=== PATIENT | female | born 1950 | race Asian ===

== ENCOUNTER → 2016-04-07 | Outpatient (CLI) | payer OTHER | LOC: BMCIMAGING 11:16 | PROVIDERS: ATTEND Internal Medicine | DX: Z13.820 Encounter for screening for osteoporosis (principal); M85.80 Other specified disorders of bone density and structure, unspecified site ==

== ENCOUNTER → 2017-01-13 | Outpatient (CLI) | payer OTHER | LOC: BMCIMAGING 13:40 | PROVIDERS: ATTEND Internal Medicine | DX: Z12.31 Encounter for screening mammogram for malignant neoplasm of breast (principal); Z80.3 Family history of malignant neoplasm of breast | CPT/HCPCS: G0202 ==

== ENCOUNTER → 2018-01-26 | Outpatient (CLI) | payer OTHER | LOC: BMCIMAGING 13:57 | PROVIDERS: ATTEND Internal Medicine | DX: Z12.31 Encounter for screening mammogram for malignant neoplasm of breast (principal); Z80.3 Family history of malignant neoplasm of breast ==

== ENCOUNTER 2018-06-17 19:02 | Observation (INO) | payer OTHER ==
[2018-06-17] MEDS ORDERED: ASPIRIN 81 MG CHEWABLE TAB ONE (19:13)
[2018-06-17] MEDS ORDERED: ASPIRIN 81 MG CHEWABLE TAB PO ONE (19:16)
[2018-06-17 19:36] LABS: PLATELET COUNT 263 10^3/uL (150-400)
--- NOTE | 2018-06-17 19:53 | EDPHY ---
H & P Stated Complaint: chest pressure Time Seen by Provider: 06/17/18 19:15 HPI/ROS: CHIEF COMPLAINT: Chest pressure HISTORY OF PRESENT ILLNESS: 68-year-old female presents with chest pressure. She was exercising on the treadmill this morning when she developed substernal chest pressure. The pressure was moderate and associated with shortness of breath. She stopped exercising and the discomfort resolved. 3 similar episodes today each lasting approximately 1 hr and occurring at rest. Previous nuclear stress test unremarkable, according to the patient. No known history of cardiopulmonary disease. REVIEW OF SYSTEMS: complete 10 point ROS reviewed and is negative except for the noted elements in the HPI Source: Patient - Personal History Current Tetanus/Diphtheria Vaccine: Yes Current Tetanus Diphtheria and Acellular Pertussis (TDAP): Yes - Medical/Surgical History Hx Asthma: No Hx Chronic Respiratory Disease: No Hx Diabetes: No Hx Cardiac Disease: No Hx Renal Disease: No Hx Cirrhosis: No Hx Alcoholism: No Hx HIV/AIDS: No Hx Splenectomy or Spleen Trauma: No Other PMH: HTN - Social History Smoking Status: Never smoked Alcohol Use: Sober Drug Use: None - Physical Exam Exam: General Appearance: Alert, pleasant Eyes: Pupils equal and round, no conjunctival pallor or injection ENT, Mouth: Mucous membranes moist Neck: Normal inspection Respiratory: Lungs are clear to auscultation Cardiovascular: Regular rate and rhythm, 2/6 systolic murmur Gastrointestinal: Abdomen is soft and nontender Neurological: A&O, nonfocal, normal gait Skin: Warm and dry, no rash Extremities: Nontender, no pedal edema Psychiatric: Mood and affect normal Constitutional: Initial Vital Signs Temperature (C) 36.6 C 06/17/18 19:03 Heart Rate 75 06/17/18 19:03 Respiratory Rate 16 06/17/18 19:03 Blood Pressure 181/97 H 06/17/18 19:03 O2 Sat (%) 97 06/17/18 19:03 O2 Delivery Mode Room Air O2 (L/minute) 2 Allergies/Adverse Reactions: No Known Allergies Allergy (Unverified 06/17/18 19:05) Home Medications: Medication Instructions Recorded Atenolol 06/17/18 Ativan 06/17/18 Calcium 06/17/18 Fish Oil 1,000 mg Softgel 06/17/18 Losartan Potassium 06/17/18 amLODIPine BESYLATE 06/17/18 Medical Decision Making - Diagnostics EKG Interpretation: EKG interpreted by me reveals normal sinus rhythm, rate 73, no ST segment changes, T-wave inversion in lead 3. Interpretation: Borderline EKG Imaging Results: Imaging Impressions Chest X-Ray 06/17/18 19:16 Impression: 1. Possible mild bronchitis. 2. No focal pneumonia, pleural effusion or pneumothorax. Imaging: Discussed imaging studies w/ yardage caller Radiologist ED Course/Re-evaluation: This patient presents with episodic chest pain and shortness of breath. Stat EKG reveals no evidence of ischemia or dysrhythmia and chest x-ray is unremarkable. Initial troponin is normal. She was given aspirin 324 mg orally. D-dimer returned at 2.2. CT pulmonary angiogram ordered and is unremarkable. Results discussed with the patient. At this point, I feel that she should be admitted for further cardiac evaluation due to concern for unstable angina. The hospitalist service was consulted for admission. Differential Diagnosis: Differential diagnosis includes though it is not limited to pneumonia, pneumothorax, pulmonary embolism, aortic dissection, pericarditis, acute coronary syndrome. - Data Points Laboratory Results: Laboratory Results 06/17/18 19:23 06/17/18 19:23 06/17/18 06/17/18 06/17/18 19:27 19:23 19:23 WBC RBC Hgb Hct MCV MCH MCHC RDW Plt Count MPV Neut % (Auto) Lymph % (Auto) Darke % (Auto) Eos % (Auto) Baso % (Auto) Nucleat RBC Rel Count Absolute Neuts (auto) Absolute Lymphs (auto) Absolute Monos (auto) Absolute Eos (auto) Absolute Basos (auto) Absolute Nucleated RBC Immature Gran % Immature Gran # D-Dimer 2.22 ug/mLFEU H ug/mLFEU (0.00-0.50) Sodium 143 mEq/L mEq/L (135-145) Potassium 3.4 mEq/L L mEq/L (3.5-5.2) Chloride 106 mEq/L mEq/L (97-110) Carbon Dioxide 23 mEq/l mEq/l (22-31) Anion Gap 14 mEq/L mEq/L (6-14) BUN 16 mg/dL mg/dL (7-23) Creatinine 0.8 mg/dL mg/dL (0.6-1.0) Estimated GFR > 60 Glucose 106 mg/dL H mg/dL (70-100) Calcium 10.3 mg/dL mg/dL (8.5-10.4) POC Troponin I 0.00 ng/mL ng/mL (0.00-0.08) NT-Pro-B Natriuret Pep 203 pg/mL H pg/mL (0-125) 06/17/18 19:23 WBC 6.67 10^3/uL 10^3/uL (3.80-9.50) RBC 4.95 10^6/uL 10^6/uL (4.18-5.33) Hgb 15.2 g/dL g/dL (12.6-16.3) Hct 43.4 % % (38.0-47.0) MCV 87.7 fL fL (81.5-99.8) MCH 30.7 pg pg (27.9-34.1) MCHC 35.0 g/dL g/dL (32.4-36.7) RDW 12.3 % % (11.5-15.2) Plt Count 263 10^3/uL 10^3/uL (150-400) MPV 9.1 fL fL (8.7-11.7) Neut % (Auto) 43.7 % % (39.3-74.2) Lymph % (Auto) 48.3 % H % (15.0-45.0) Darke % (Auto) 6.6 % % (4.5-13.0) Eos % (Auto) 1.0 % % (0.6-7.6) Baso % (Auto) 0.3 % % (0.3-1.7) Nucleat RBC Rel Count 0.0 % % (0.0-0.2) Absolute Neuts (auto) 2.91 10^3/uL 10^3/uL (1.70-6.50) Absolute Lymphs (auto) 3.22 10^3/uL H 10^3/uL (1.00-3.00) Absolute Monos (auto) 0.44 10^3/uL 10^3/uL (0.30-0.80) Absolute Eos (auto) 0.07 10^3/uL 10^3/uL (0.03-0.40) Absolute Basos (auto) 0.02 10^3/uL 10^3/uL (0.02-0.10) Absolute Nucleated RBC 0.00 10^3/uL 10^3/uL (0-0.01) Immature Gran % 0.1 % % (0.0-1.1) Immature Gran # 0.01 10^3/uL 10^3/uL (0.00-0.10) D-Dimer Sodium Potassium Chloride Carbon Dioxide Anion Gap BUN Creatinine Estimated GFR Glucose Calcium POC Troponin I NT-Pro-B Natriuret Pep Medications Given: Discontinued Medications Aspirin (Aspirin) 324 mg PO EDNOW ONE Stop: 06/17/18 19:17 Last Admin: 06/17/18 19:43 Dose: 324 mg Point of Care Test Results: Chemistry 06/17/18 19:27 POC Troponin I 0.00 ng/mL ng/mL (0.00-0.08) Departure - Departure Disposition: [facility] Inpatient Acute Clinical Impression: Chest pain Condition: Fair Referrals: Joce Edwards MD [Primary Care Provider] - As per Instructions
[2018-06-17] MEDS ORDERED: IOPAMIDOL (ISOVUE 370) 100 ML BTL IV ONE (19:55)
[2018-06-17] MEDS ORDERED: ACETAMINOPHEN 325 MG TAB PO PRN (21:24)
[2018-06-17] MEDS ORDERED: ONDANSETRON 4 MG/2 ML VIAL IVP PRN (21:24)
--- NOTE | 2018-06-17 21:56 | CPEKG ---
Test Reason : OPEN Blood Pressure : / mmHG Vent. Rate : 073 BPM Atrial Rate : 073 BPM P-R Int : 173 ms QRS Dur : 097 ms QT Int : 424 ms P-R-T Axes : 080 049 -15 degrees QTc Int : 468 ms Sinus rhythm Borderline T abnormalities, inferior leads Confirmed by Nicole Ceballos ([id number]) on 06/17/2018 9:55:51 PM Referred By: Nicole Ceballos Confirmed By:Nicole Ceballos
[2018-06-17] MEDS ORDERED: LORazepam 1 MG TAB PO PRN (22:14)
--- NOTE | 2018-06-18 00:53 | GHP ---
[f rep st] HISTORY AND PHYSICAL DATE OF ADMISSION: 06/17/2018 CHIEF COMPLAINT: Chest tightness with exertion. HISTORY OF PRESENT ILLNESS: The patient is a pleasant 68-year-old female with a past medical history of hypertension and [id number]-nnczhjkl mitral regurgitation who presented to the [facility] Emergency Room after noting recurrent chest tightness throughout the day today. She states that she got up and exercised on a treadmill as she normally does. She states she was not able to get to the same speed that she normally can and developed chest tightness with radiation to her neck. She stopped, and her symptoms did resolve. She then returned home and rested on her couch. Later, she went to [employer] to shop and then again when walking around [employer] noted the same chest tightness with radiation to her neck. She returned home and again rested on her couch, but symptoms did not nadira right away, so she came into the emergency room for further evaluation. At the current time, her symptoms have self-resolved. She is a patient of mine in my outpatient practice and had been complaining of symptoms and recently underwent a nuclear medicine stress test. This was read as a normal myocardial perfusion scan with no areas of infarction or ischemia. She did undergo an echocardiogram as well which showed an estimated ejection fraction of 65 to 70% with [id number] mitral regurgitation, mild tricuspid regurgitation. There were no significant changes compared to her most recent study in 2013. In the emergency room, she had a D- dimer performed which was elevated, so she subsequently underwent CT angiography of the aorta. No definite pulmonary emboli were seen. There was no evidence of aortic aneurysm or dissection. I reviewed her case with Cardiology, and they will provide a formal consultation tomorrow morning. PAST MEDICAL HISTORY: Hypertension, mitral valve regurgitation, history of PVCs , depression. PAST SURGICAL HISTORY: No known prior surgeries. CURRENT MEDICATIONS: Atenolol 25 mg daily, amlodipine 10 mg daily, losartan 25 mg daily, lorazepam 1 mg nightly as needed for insomnia. ALLERGIES: No known drug allergies. FAMILY HISTORY: Mother is ; she had a history of coronary artery disease as well as kidney failure. Father is reportedly alive and well. 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 She is currently with 1 son and 1 daughter. She is a nonsmoker. REVIEW OF SYSTEMS: CONSTITUTIONAL: No complaints of any fevers or chills. ENT : No recent upper respiratory illnesses. CARDIOVASCULAR: No complaints of syncope, but she has had chest tightness with neck radiation, some radiation of her pain as well to the right side of her chest. RESPIRATORY: Positive for exertional shortness of breath. GI: No nausea or vomiting. : No report of any difficulty with urination. NEUROLOGIC: No complaints of any headaches or focal weakness. HEMATOLOGIC: No history of any deep vein thrombosis or pulmonary embolism. PSYCHIATRIC: Positive for depression history. ENDOCRINE: No history of polyuria or heat intolerance. SKIN: No new skin rashes. MUSCULOSKELETAL: No focal joint pains. PHYSICAL EXAMINATION: VITAL SIGNS: Temperature 36.6, blood pressure 181/97, heart rate 75, respirations 16, satting 100% on 2 L nasal cannula. GENERAL: Patient resting comfortably in bed. She is arousable, awake, alert, conversant. HEENT: Extraocular movements intact. No scleral icterus. NECK: Supple. No thyroid enlargement. CHEST: Clear on auscultation with normal respiratory effort. HEART: Regular. No murmurs appreciated. ABDOMEN: Soft, nontender. : No Mirza catheter. EXTREMITIES: No significant edema or calf pain. NEUROLOGIC: Cranial nerves 2 through 12 appear grossly intact. DATA REVIEWED: LABS: White blood cell count 6, hemoglobin 15, platelets 263. Sodium 143, potassium 3.4, chloride 106, bicarb 23, BUN 16, creatinine 0.8, glucose 106. Troponin negative. BNP 203. ECG: Normal sinus rhythm without T-wave inversions or ST-segment changes. IMAGING: As detailed in the HPI. ASSESSMENT AND PLAN: Chest pain. Symptoms sound suspicious for cardiac etiology. However, recent testing including a stress test and echocardiogram was unremarkable. She is currently chest pain free with normal troponin and no obvious ST-segment changes on ECG. Will repeat a troponin tomorrow morning along with ECG, but I do recommend second opinion with Cardiology to discuss her symptoms and determine further workup. I will admit her under observation status. /[id number]/MODL MTDD
[2018-06-18 04:29] LABS: PLATELET COUNT 250 10^3/uL (150-400)
[2018-06-18] MEDS ORDERED: LOSARTAN POTASSIUM 25 MG TAB PO SCH (09:00)
[2018-06-18] MEDS ORDERED: ATENOLOL 25 MG TAB PO SCH (09:00)
[2018-06-18] MEDS ORDERED: ASPIRIN 325 MG TAB PO SCH (09:00)
[2018-06-18] MEDS ORDERED: ENOXAPARIN 40 MG/0.4 ML SYR SC SCH (09:00)
[2018-06-18] MEDS ORDERED: TEMAZEPAM 15 MG CAP PO PRN (09:20)
[2018-06-18] MEDS ORDERED: NITROGLYCERIN 0.4 MG BTL SL PRN (09:20)
[2018-06-18] MEDS ORDERED: diphenhydrAMINE 25 MG CAP PO ONE (09:20)
[2018-06-18] MEDS ORDERED: DIAZEPAM 5 MG TAB PO ONE (09:20)
[2018-06-18] MEDS ORDERED: FAMOTIDINE 20 MG TAB PO ONE (09:20)
[2018-06-18] MEDS ORDERED: NS 1,000 ML IV SCH (09:30)
[2018-06-18] MEDS ORDERED: LIDOCAINE 1% 300 MG/30 ML SDV ONE (10:25)
[2018-06-18] MEDS ORDERED: fentaNYL 100 MCG/2 ML INJ ONE (10:27)
[2018-06-18] MEDS ORDERED: IOPAMIDOL (ISOVUE-370) 150 ML BTL IV ONE (10:27)
[2018-06-18] MEDS ORDERED: MIDAZOLAM 2 MG/2 ML VIAL ONE (10:27)
--- NOTE | 2018-06-18 10:38 | PDPROPOC ---
Sedation Plan of Care Sedation Plan of Care: vital signs stable, mental status noted, patient educated of risks, benefits, alternatives, patient can tolerate sedation ASA Classification: ASA 2 Planned drugs: fentanyl, midazolam Mallampati Score: Class 2 Mallampati Reference Image: Patient passed 3-3-2 rule?: Yes
--- NOTE | 2018-06-18 11:08 | GCON ---
[f rep st] CONSULTATION CARDIOLOGY CONSULTATION INDICATION FOR CARDIOLOGY CONSULTATION: Ongoing exertional chest pain and abnormal electrocardiogram. REQUESTING PHYSICIAN: Dr. Joce Edwards, Hospitalist services HISTORY OF PRESENT ILLNESS: The patient is a pleasant 68-year-old female who has a significant past history that includes hypertension, mild to moderate mitral regurgitation, history of PVCs, and depression. She informs me, over the last 8 months, she has been noticing chest tightness with exercise. She states it usually comes on when she to especially exerts herself, getting her heart rate significantly elevated on the treadmill. She does note with these symptoms she does note some mild shortness of breath. She states at points, she has noted radiation into her jaw, she reports no nausea or diaphoresis. She states that the symptoms usually do subside within a few minutes after rest. She does inform me that recently, 3 weeks ago, her Dr. Edwards who is also her primary care physician at [facility], had her undergo an ETT MPI study, in which she reports she was told was normal. 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 She also had an echocardiogram done. Per Dr. Edwards's note, she was noted to have an EF of 65% to 70% with no wall motion abnormalities, [id number] MR, mild TR. She states since the stress test 3 weeks ago, she continues to have exertional chest pressure. She does state what brought her into the hospital was yesterday, she did exercise on the treadmill, reporting only able to go for a few minutes, and started to experience her normal chest pressure, she did rest, but stating it did not resolve like it usually does within 5 minutes but stated in an hour. She did go home and rest, and was feeling better during the afternoon, but later in the evening, she started developing the same chest heaviness with some shortness of breath while at rest. This was unusual for her and did have her concerned. She called her , who drove her to the emergency department for further evaluation. Upon arrival, an electrocardiogram was done which noted downward T- waves in lead II and III, and aVF. She does state by the time that she was at the emergency department her symptoms had mostly resolved. Laboratory studies were drawn, and she was noted to have a negative troponin of 0.00, but a D- dimer of 2.2. She did undergo CTA of the chest which was negative for PE and dissection. She was admitted to the PCU. She reports she has been chest pain- free since arrival to the hospital, she has maintained sinus rhythm, sinus murtaza , with no malignant arrhythmias or pauses overnight. She reports no recent history of fevers, chills, or night sweats. Reports no orthopnea, PND, edema, palpitations, lightheadedness, near-syncope or syncopal events. Patient with significant cardiac risk factors that include age, hypertension, borderline hyperlipidemia, and family history of coronary artery disease, saying brother of an LA at age 61 and Mother of an LA at age 70. PAST MEDICAL HISTORY: Includes hypertension, patient states borderline hyperlipidemia, recently diagnosed [id number] mitral regurgitation, history of PVCs, history of depression. PAST SURGICAL HISTORY: No prior surgeries. 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 She has 2 adult children who are alive and well. She reports no history of smoking. She reports occasional EtOH abuse. Denies any illicit drug use. ALLERGIES: No known drug allergies. HOME MEDICATIONS: Include Ativan 1 mg p.o. h.s. p.r.n., calcium carbonate/ vitamin D3 1 tablet p.o. b.i.d., amlodipine 10 mg p.o. b.i.d., losartan 25 mg p.o. daily, atenolol 25 mg p.o. daily. REVIEW OF SYSTEMS: A 10-point review of systems done on this patient all negative except as mentioned above. PHYSICAL EXAMINATION: GENERAL APPEARANCE: Short statured, mildly overweight, [place] female. She is alert and oriented to person, place, time, and situation. Appears to be under no acute distress at the time of my exam. CURRENT VITAL SIGNS: Blood pressure of 127/72, heart rate of 50 sinus bradycardia on the monitor. Respirations are 16. Saturating 96% on room air. Temperature 36.7 degrees Celsius. HEENT: Head is normocephalic. Lips and tongue are pink and moist with no signs of cyanosis. Conjunctivae pink. NECK: Trachea is midline, +2 carotid pulses bilateral. No auscultated bruits, no jugular vein distention. RESPIRATORY: Lungs are clear to auscultation. No rhonchi, rales, or wheezes. No accessory muscle use. No intercostal muscle retraction noted. CARDIAC: Regular rate, regular rhythm, S1, S2, 1/6 systolic murmur noted along the left sternal border. ABDOMEN: Soft, nontender. Bowel sounds x4 quadrants. No organomegaly. No palpable masses. SKIN: Roberts, warm, dry, no cyanosis, no clubbing, no peripheral edema. VASCULAR: +2 carotids bilateral, +2 radials bilateral, +1 dorsal pedal and posterior tibial pulses bilateral. LABORATORY STUDIES: Laboratory studies drawn today show WBC of 5.60, hemoglobin of 14.2, hematocrit of 41.9, platelet count of 250. Sodium 141, potassium 3.7, chloride 108, CO2 of 23, BUN 14, creatinine 0.9, glucose 90. CK of 9.4 with a CK-MB fraction of 1.13. Troponin less than 0.012. On admission, patient was noted to have a D-dimer of 2.2, initial troponin of 0.00, and a proBNP of 203. STUDIES: Initial electrocardiogram as mentioned above. Chest x-ray, shows mild bronchitis with no acute cardiopulmonary process. CTA of chest done on admission showing no definitive PE, no aortic dissection. Electrocardiogram this morning in comparison shows now T-waves in inferior leads upwards with biphasic T-waves in V1, V2, and V3. Sinus bradycardia. ASSESSMENT AND PLAN: 1. Exertional chest pressure: Concerning for potential coronary ischemia, especially with the ongoing symptoms. Electrocardiogram abnormalities as mentioned above, the patient with cardiac risk factors of age, hypertension, borderline hyperlipidemia, and family history of coronary artery disease. The patient has been noted to have a recent normal ETT MPI study, but patient stating she has continued having ongoing exertional chest pressure and pain. She does state during her exercise treadmill, she did note some chest pressure during testing, and stated that she had frequent PVCs with exertion. At this time, it is felt best that she should be further evaluated for cardiac ischemia. We would like her to undergo cardiac catheterization. Risks and benefits of this procedure were explained to the patient, she verbalizes understanding and is wanting to proceed. She has been n.p.o., we will make sure she has an aspirin prior to procedure. Further recommendations, post coronary angiogram. 2. Hypertension: Currently her blood pressure is well controlled on current home medication regime. No changes at this time. 3. History of migv-gx-yucriirp regurgitation. Per Dr. Edwards, the patient has had a recent echocardiogram at [facility]. I do not have the report available to me, but he has reviewed it. She shows no signs of heart failure. She did have mild BNP elevation. We will continue to monitor her for signs of heart failure. I would recommend potential repeating echocardiogram in 1 years time to assure no worsening of her regurgitant MR. 4. Hyperlipidemia: Patient reports borderline history of hyperlipidemia, I will have her get a fasting lipid panel this morning off the a.m. labs for evaluation. Thank you for this consultation. We will be glad to follow along with you. /[id number]/MODL MTDD
--- NOTE | 2018-06-18 12:39 | PDDXCAT ---
Diagnostic Cath Note - . 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 No luminal irregularities were noted. LAD: Medium diameter vessel with smallish D1, and principal D2. No luminal irregularities were noted. Mild tortuosity. LCX: Medium diameter vessel with an equal sized OM1 and OM3 (smallish OM2), and no appreciable luminal irregularities. Mild distal tortuosity was noted. RCA: Medium diameter vessel with supply to the PDA and ANH. No luminal irregularities were noted. EDP: 13 mm Hg LVEF: 65% Wall motion: normal wall motion Complications: none Estimated blood loss: <50ml Closure method: Angioseal Assessment: Patient is a 68 y/o female with complaints of chest discomfort, strong, premature CAD to the family, reports of elevated PVC burden on ETT, and non specific ST/T wave changes to ECG. No CAD was noted on angiography. Normal LVEF was noted. Plan: Medical management of CV risks should continue. Would consider GI and/or pulmonary evaluation for the symptoms that have been noted. Intervention: none Patient Problems: Problems Problem Status Onset Chest pain Acute
[2018-06-18 14:12] VITALS: BP 123/73
--- NOTE | 2018-06-18 14:59 | ASMTCMCOM ---
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 Met w/pt to discuss d/c needs. TONIA signed. Pt is to Tim [phone]. Daughter Laurita Francisco lives in [place]. Pt PCP is Dr. Edwards. There are no therapy evals ordered today. Pt is independent with ADL's; has not had home care or a stay at SNF rehab in the past. Case Management d/c poc: anticipating independent with follow up as directed. Case Management to follow. Date Signed: 06/18/2018 02:58 PM Electronically Signed By:eMliza Epstein RN
--- NOTE | 2018-06-18 19:37 | PDDCSUM ---
Discharge Summary Discharge Summary: Diagnoses: Chest pain, likely noncardiac Possible asthma HTN MV regurgitation Overweight Hospital Course: The patient is a 68yo F with complex cardiac history who was admitted for acute chest pain. She had history of CAD and had undergone an outpatient exercise stress test which showed elevated PVC burden. She had undergone an outpatient echocardiogram which was unremarkable. She underwent a diagnostic L cardiac catheterization which showed no significant luminal irregularities of coronary arteries. Meds: no medication changes made; resume home meds. Follow up: PCP in 1 week. Special instructions: Return to hospital for concerning severe symptoms, like intractable pain, difficulty breathing, or fainting.
--- NOTE | 2018-06-19 10:41 | CPEKG ---
Test Reason : OPEN Blood Pressure : / mmHG Vent. Rate : 049 BPM Atrial Rate : 048 BPM P-R Int : 193 ms QRS Dur : 090 ms QT Int : 509 ms P-R-T Axes : 055 057 026 degrees QTc Int : 460 ms Sinus bradycardia Borderline T abnormalities, anterior leads Confirmed by Anthony Ortega ([id number]) on 06/19/2018 10:41:14 AM Referred By: Joce Edwards Confirmed By:Anthony Ortega
== END 2018-06-18 16:54 | disposition home or self-care (01) ==
LOC: F2W 22:23
PROVIDERS: ADMIT Internal Medicine; ATTEND Internal Medicine
DX: R07.89 Other chest pain (principal); I10 Essential (primary) hypertension; I34.0 Nonrheumatic mitral (valve) insufficiency; E78.5 Hyperlipidemia, unspecified; F32.9 Major depressive disorder, single episode, unspecified; Z82.49 Family history of ischemic heart disease and other diseases of the circulatory system
CPT/HCPCS: 71046; 71275; 93005; 93458; C1760; G0378; J1200; J1644; J1650; J2250; J3010; Q9967; 84484-ER